=== PATIENT | female | born 1970 | race Caucasian/White ===

== ENCOUNTER 2018-09-14 09:21 | Inpatient (IN) ==
[2018-09-14] MEDS ORDERED: Chlorhexidine Gluconate 2% 1 Pack (2 Cloths) TOPICAL SCH (10:01)
[2018-09-14] MEDS ORDERED: Metoprolol Tartrate 25 MG Tablet PO SCH (10:01)
[2018-09-14] MEDS ORDERED: Sodium Chlor 0.9% Inj 0 ML ONE (10:13)
[2018-09-14] MEDS ORDERED: ceFAZolin 2 GM Premix Inj 2 GM/50 ML PIGGYBACK IV.SIG SCH (11:00)
[2018-09-14] MEDS ORDERED: Sodium Chlor 0.9% Inj 500 ML IV.SIG SCH (11:00)
[2018-09-14] MEDS ORDERED: Bupivacaine/Epinephrine Inj 0.25% 50 ML Vial ONE (13:11)
[2018-09-14] MEDS ORDERED: Neostigmine Inj 5 MG/5 ML Syringe IV.PUSH ONE (13:39)
[2018-09-14] MEDS ORDERED: Glycopyrrolate Inj 1 MG/5 ML Syringe IV.PUSH ONE (13:39)
[2018-09-14] MEDS ORDERED: Lidocaine PF 1% Inj 5 ML Syringe OTHER ONE (13:39)
[2018-09-14] MEDS ORDERED: fentaNYL Citrate Inj 100 MCG/2 ML Ampul ONE (14:55)
[2018-09-14] MEDS ORDERED: *morphine SULFATE 4 MG/ML PERIprocedure ONLY ONE (16:16)
[2018-09-14] MEDS ORDERED: *Meperidine Inj 25 MG/ML Vial PERIprocedural Use ONLY ONE (16:22)
[2018-09-14] MEDS ORDERED: *Promethazine Inj 25 MG/ML Vial PERIprocedural use ONLY ONE (16:35)
[2018-09-14] MEDS ORDERED: Post-op Orders (for Pharmacy) OTHER STA (17:05)
[2018-09-14] MEDS ORDERED: diphenhydrAMINE HCl 12.5 MG/5 ML Elixir UDC PO PRN (17:05)
[2018-09-14] MEDS ORDERED: Acetaminophen-HYDROcodone 325/7.5 Liq 15 ML UDC PO PRN (17:05)
[2018-09-14] MEDS ORDERED: Naloxone Inj 0.4 MG/ML Vial IV.PUSH PRN (17:08)
[2018-09-14] MEDS ORDERED: KCL 20 mEq/D5W/NaCl 0.45% Inj 1,000 ML ONE (17:18)
[2018-09-14] MEDS ORDERED: Morphine Inj 30 MG/30 ML PCA.VIAL PCA ONE (17:19)
[2018-09-14] MEDS: KCL 20 mEq/D5W/NaCl 0.45% Inj 1,000 ML IV.CONT SCH (17:30)
[2018-09-14] MEDS: Morphine Inj 30 MG/30 ML PCA.VIAL PCA PRN (17:31)
[2018-09-14] MEDS ORDERED: Enoxaparin Inj 40 MG/0.4 ML Syringe SQ SCH (20:00)
[2018-09-14] MEDS: ceFAZolin 1 GM Premix Inj 1 GM/50 ML PIGGYBACK IV.SIG SCH (20:50)
[2018-09-15] MEDS: KCL 20 mEq/D5W/NaCl 0.45% Inj 1,000 ML IV.CONT SCH ×3 (03:08→18:29)
[2018-09-15] MEDS: ceFAZolin 1 GM Premix Inj 1 GM/50 ML PIGGYBACK IV.SIG SCH ×2 (04:31→12:33)
[2018-09-15 05:53] LABS: Baso % (Auto) 0.1 % (0.0-2.0); Hematocrit 37.9 % (35.0-46.0); Hemoglobin 12.7 gm/dL (11.6-15.3); Lymph # (Auto) 0.8 th/mm3 (1.0-4.8); Lymph % (Auto) 8.9 % (9.0-44.0); Mean Corpuscular HGB Conc 33.4 % (32.0-36.0); Mean Corpuscular Hemoglobin 30.8 pg (27.0-34.0); Mean Corpuscular Volume 92.3 fL (80.0-100.0); Mean Platelet Volume 9.1 fL (7.0-11.0); Mono # (Auto) 0.4 th/mm3 (0.0-0.9); Platelet Count 291 th/mm3 (150-450); Red Blood Count 4.11 mil/mm3 (4.00-5.30); Red Cell Distribution Width 13.5 % (11.6-17.2); White Blood Count 9.2 th/mm3 (4.0-11.0)
[2018-09-15] MEDS: Morphine Inj 30 MG/30 ML PCA.VIAL PCA PRN (06:10)
[2018-09-15 06:22] LABS: Anion Gap 7 meq/L (5-15); Blood Urea Nitrogen 12 mg/dL (7-18); Calcium 8.3 mg/dL (8.5-10.1); Carbon Dioxide 24.2 meq/L (21.0-32.0); Chloride 106 meq/L (98-107); Glomerular Filtration Rate Greater Than 89 mL/min (>89); Glucose,Random 158 mg/dL (74-106); Magnesium 2.1 mg/dL (1.5-2.5); Potassium 4.3 meq/L (3.5-5.1); Sodium 137 meq/L (136-145)
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
== END 2018-09-15 19:57 | disposition home or self-care (01) ==
LOC: HSDI 09:21 → N07 18:06
PROVIDERS: ADMIT Surgery; ATTEND Surgery